=== PATIENT | male | born 1990 | race African-American/Black ===

== ENCOUNTER 2021-11-19 07:36 | Emergency (ER) | payer SELFPAY ==
[2021-11-19] MEDS ORDERED: Ketorolac Tromethamine 30 MG/ML VIAL ONE (08:36)
== END 2021-11-19 09:20 | disposition home or self-care (01) ==
LOC: ERS 07:36
DX: M54.2 Cervicalgia (principal); M25.512 Pain in left shoulder; M62.838 Other muscle spasm
CPT/HCPCS: 93005; 96372; J1885

== ENCOUNTER 2022-08-02 22:48 | Emergency (ER) | payer OTHER, SELFPAY ==
[2022-08-03] MEDS ORDERED: HYDROcodone/Acetaminophen 10/325 mg Tablet ONE (00:48)
[2022-08-03] MEDS ORDERED: Ketorolac Tromethamine 30 MG/ML VIAL ONE (01:08)
== END 2022-08-03 01:22 | disposition home or self-care (01) ==
LOC: ERS 22:48
DX: S62.633A Displaced fracture of distal phalanx of left middle finger, initial encounter for closed fracture (principal); S62.635A Displaced fracture of distal phalanx of left ring finger, initial encounter for closed fracture; W23.0XXA Caught, crushed, jammed, or pinched between moving objects, initial encounter
CPT/HCPCS: 96372; J1885